=== PATIENT | male | born 1975 | race Caucasian/White ===

== ENCOUNTER 2017-12-22 20:06 | Inpatient (IN) | payer MEDICAID, OTHER ==
[2017-12-22] MEDS: KETOROLAC 30 MG INJ IV (23:35)
[2017-12-22] MEDS: ACETAMINOPHEN 325 MG TAB PO (23:35)
[2017-12-22] MEDS: ONDANSETRON 4 MG INJ IV (23:35)
[2017-12-22] MEDS: VANCOMYCIN 1 GM (PMX) 250 ML IVPB (23:35)
[2017-12-22 23:42] LABS: ADD MAN DIFF? NO
[2017-12-22] MEDS: SOD CHLORIDE 0.9% 1,000 ML IV (23:44)
[2017-12-22 23:47] LABS: WHITE BLOOD COUNT 14.7 10^3/ul (4.8-10.8)
[2017-12-22 23:47] LABS: BASOPHILS % 0.3 % (0.0-2.0); EOSINOPHILS # 0.1 10^3/ul (0.0-0.5); EOSINOPHILS % 0.4 % (0.0-7.0); HEMATOCRIT 36.6 % (42.0-52.0); HEMOGLOBIN 12.2 g/dl (14.0-18.0); MEAN CORPUSCULAR HEMOGLOBIN 29.8 pg (29.0-33.0); MEAN CORPUSCULAR HGB CONC 33.3 g/dl (32.0-37.0); MEAN CORPUSCULAR VOLUME 89.3 fl (82.0-101.0); MONOCYTE # 1.4 10^3/ul (0.3-0.9); MONOCYTES % 9.6 % (0.0-11.0); NEUTROPHILS % 81.5 % (39.0-77.0); PLATELET COUNT 198 10^3/UL (140-415); RED CELL DISTRIBUTION WIDTH 12.1 % (11.5-14.5)
[2017-12-23 00:05] LABS: ALANINE AMINOTRANSFERASE 42 IU/L (13-69); ALBUMIN 3.8 g/dl (3.3-4.9); ALBUMIN/GLOBULIN RATIO 0.82; ALKALINE PHOSPHATASE 141 IU/L (42-121); ANION GAP 19 (8-16); ASPARTATE AMINO TRANSFERASE 34 IU/L (15-46); BILIRUBIN,INDIRECT 0.2 mg/dl (0-1.1); BILIRUBIN,TOTAL 0.2 mg/dl (0.2-1.3); BLOOD UREA NITROGEN 32 mg/dl (7-20); CALCIUM 9.3 mg/dl (8.4-10.2); CARBON DIOXIDE 21 mmol/L (21-31); CHLORIDE 101 mmol/L (97-110); CREATININE 3.27 mg/dl (0.61-1.24); GLUCOSE 138 mg/dl (70-220); POTASSIUM 4.3 mmol/L (3.5-5.1); SODIUM 137 mmol/L (135-144); TOTAL PROTEIN 8.4 g/dl (6.1-8.1)
[2017-12-23 00:10] LABS: LACTIC ACID 2.2 mmol/L (0.5-2.0)
[2017-12-23 00:16] LABS: TROPONIN-I < 0.012 ng/ml (0.000-0.120)
[2017-12-23 00:21] LABS: INR 1.12; PROTIME 14.6 Sec (11.9-14.9); PT RATIO 1.1
[2017-12-23 00:22] LABS: PARTIAL THROMBOPLASTIN TIME 32.7 Sec (25.0-35.0)
[2017-12-23] MEDS: SOD CHLORIDE 0.9% 1,000 ML IV (01:15)
[2017-12-23] MEDS: CLINDAMYCIN 900 MG/D5W (PMX) 50 ML IVPB (01:37)
[2017-12-23 01:48] LABS: LACTIC ACID 0.6 mmol/L (0.5-2.0)
[2017-12-23] MEDS ORDERED: ONDANSETRON INJ 8 MG in DEXTROSE 5% 50 ML IV (05:30)
[2017-12-23] MEDS: DEXTROSE 5%-0.45% NACL 1,000 ML IV ×3 (05:41→22:26)
[2017-12-23 06:06] LABS: LACTIC ACID 0.9 mmol/L (0.5-2.0)
[2017-12-23] MEDS ORDERED: NACL 0.9% 3 ML SYG IV (07:00)
[2017-12-23] MEDS ORDERED: ALBUTEROL/IPRATROPIUM (NEB) 3 ML AMP HHN (07:00)
[2017-12-23] MEDS ORDERED: ONDANSETRON 4 MG INJ IV (07:00)
[2017-12-23] MEDS ORDERED: VANCOMYCIN IV PER PHARMACY XX (09:00)
[2017-12-23] MEDS: CEFEPIME 1GM/50 ML (PMX) 50 ML IVPB (09:25)
[2017-12-23] MEDS: HEPARIN 5,000 UNIT/0.5 ML VIAL SC ×2 (09:28→20:26)
[2017-12-23] MEDS: VANCOMYCIN 2 GM in SOD CHLORIDE 0.9% 500 ML IVPB (10:12)
[2017-12-23 11:56] LABS: HEMOGLOBIN A1C 5.1 % (0-5.9)
[2017-12-23 12:22] LABS: C-REACTIVE PROTEIN 20.2 mg/dl (0.0-0.9)
[2017-12-23 12:36] LABS: ADD UMIC YES; UR ASCORBIC ACID NEGATIVE (NEGATIVE); UR BACTERIA FEW /HPF (NONE SEEN); UR BILIRUBIN (Dip) NEGATIVE (NEGATIVE); UR BLOOD (Dip) 1+ mg/dL (NEGATIVE); UR CLARITY CLEAR (CLEAR); UR COLOR YELLOW (YELLOW); UR GLUCOSE (Dip) NEGATIVE (NEGATIVE); UR KETONES (Dip) NEGATIVE (NEGATIVE); UR LEUKOCYTE ESTERASE (Dip) NEGATIVE Leu/ul (NEGATIVE); UR NITRITE (Dip) NEGATIVE (NEGATIVE); UR RBC 1 /HPF (0-5); UR TOTAL PROTEIN (Dip) NEGATIVE (NEGATIVE); UR UROBILINOGEN (Dip) NEGATIVE (NEGATIVE); UR WBC 4 /HPF (0-5)
[2017-12-23 13:19] LABS: ADD UMIC YES; UR ASCORBIC ACID NEGATIVE (NEGATIVE); UR BILIRUBIN (Dip) NEGATIVE (NEGATIVE); UR BLOOD (Dip) 1+ mg/dL (NEGATIVE); UR CLARITY CLEAR (CLEAR); UR COLOR YELLOW (YELLOW); UR GLUCOSE (Dip) 1+ mg/dL (NEGATIVE); UR KETONES (Dip) NEGATIVE (NEGATIVE); UR LEUKOCYTE ESTERASE (Dip) NEGATIVE Leu/ul (NEGATIVE); UR NITRITE (Dip) NEGATIVE (NEGATIVE); UR RBC 0 /HPF (0-5); UR SPECIFIC GRAVITY (Dip) 1.011 (1.003-1.030); UR TOTAL PROTEIN (Dip) 1+ mg/dl (NEGATIVE); UR UROBILINOGEN (Dip) NEGATIVE (NEGATIVE); UR WBC 5 /HPF (0-5)
[2017-12-23 13:31] LABS: SODIUM,URINE RANDOM 45 mmol/L (30-90)
[2017-12-23 13:40] LABS: CREATININE,URINE RANDOM 93.47 mg/dl (20-370); PROTEIN/CREAT RATIO 0.71 RATIO
[2017-12-23 13:41] LABS: CREATININE,URINE RANDOM 95.24 mg/dl (20-370)
[2017-12-23 13:43] LABS: AMPHETAMINE/METHAMPHETAMINE Negative (NEGATIVE); BARBITURATES Negative (NEGATIVE); BENZODIAZEPINES Negative (NEGATIVE); CANNABINOIDS Negative (NEGATIVE); COCAINE Negative (NEGATIVE); OPIATES Negative (NEGATIVE)
[2017-12-23 14:04] LABS: ERYTHROCYTE SEDIMENTATION RATE 86 mm/Hr (0-15)
[2017-12-23] MEDS: ACETAMINOPHEN 325 MG TAB PO (20:24)
[2017-12-24 05:00] LABS: ADD MAN DIFF? NO
[2017-12-24 05:07] LABS: BASOPHILS % 0.4 % (0.0-2.0); EOSINOPHILS # 0.2 10^3/ul (0.0-0.5); HEMATOCRIT 33.8 % (42.0-52.0); HEMOGLOBIN 11.1 g/dl (14.0-18.0); LYMPHOCYTES % 10.1 % (15.0-51.0); MEAN CORPUSCULAR HEMOGLOBIN 29.6 pg (29.0-33.0); MEAN CORPUSCULAR HGB CONC 32.8 g/dl (32.0-37.0); MEAN CORPUSCULAR VOLUME 90.1 fl (82.0-101.0); MEAN PLATELET VOLUME 9.6 fl (7.4-10.4); MONOCYTES % 9.5 % (0.0-11.0); NEUTROPHIL # 7.7 10^3/ul (1.6-7.5); NEUTROPHILS % 76.7 % (39.0-77.0); PLATELET COUNT 202 10^3/UL (140-415); RED BLOOD COUNT 3.75 10^6/ul (4.70-6.10); RED CELL DISTRIBUTION WIDTH 12.5 % (11.5-14.5)
[2017-12-24 05:07] LABS: WHITE BLOOD COUNT 10.1 10^3/ul (4.8-10.8)
[2017-12-24 05:57] LABS: ALANINE AMINOTRANSFERASE 37 IU/L (13-69); ALBUMIN 3.4 g/dl (3.3-4.9); ALBUMIN/GLOBULIN RATIO 0.85; ALKALINE PHOSPHATASE 154 IU/L (42-121); ANION GAP 16 (8-16); ASPARTATE AMINO TRANSFERASE 36 IU/L (15-46); BILIRUBIN,INDIRECT 0.3 mg/dl (0-1.1); BILIRUBIN,TOTAL 0.3 mg/dl (0.2-1.3); BLOOD UREA NITROGEN 21 mg/dl (7-20); CALCIUM 8.6 mg/dl (8.4-10.2); CARBON DIOXIDE 25 mmol/L (21-31); CHLORIDE 107 mmol/L (97-110); CREATININE 1.76 mg/dl (0.61-1.24); GLUCOSE 126 mg/dl (70-220); MAGNESIUM 2.2 mg/dl (1.7-2.5); PHOSPHORUS 3.6 mg/dl (2.5-4.9); SODIUM 144 mmol/L (135-144); TOTAL PROTEIN 7.4 g/dl (6.1-8.1)
[2017-12-24] MEDS: DEXTROSE 5%-0.45% NACL 1,000 ML IV ×3 (06:24→23:17)
[2017-12-24] MEDS ORDERED: PROPOFOL 200 MG INJ (07:00)
[2017-12-24] MEDS: HEPARIN 5,000 UNIT/0.5 ML VIAL SC ×2 (08:23→20:50)
[2017-12-24] MEDS: CEFEPIME 1GM/50 ML (PMX) 50 ML IVPB (08:23)
[2017-12-24] MEDS: HYDROCODONE/APAP (5/325) TAB PO ×3 (08:30→23:24)
[2017-12-24] MEDS ORDERED: FENTAnyl 50 MCG/ML VIAL (16:48)
[2017-12-24] MEDS ORDERED: METOCLOPRAMIDE 10 MG INJ IV (17:00)
[2017-12-24] MEDS ORDERED: ALBUTEROL 0.083% (NEB) 2.5 MG/3 ML AMP HHN (17:00)
[2017-12-24] MEDS ORDERED: ONDANSETRON 4 MG INJ IV (17:00)
[2017-12-24] MEDS ORDERED: DIPHENHYDRAMINE 50 MG INJ IV (17:00)
[2017-12-24] MEDS ORDERED: HYDROmorphONE 1 MG/5 ML IV SYRINGE IV ×3 (17:00)
[2017-12-24] MEDS ORDERED: FENTAnyl 50 MCG/ML VIAL IV ×2 (17:00)
[2017-12-24] MEDS ORDERED: MEPERIDINE 25 MG INJ IV (17:00)
[2017-12-24] MEDS ORDERED: LIDOCAINE 1% (MPF) 30 ML INJ (17:15)
[2017-12-24] MEDS ORDERED: PROPOFOL 80 ML (17:37)
[2017-12-24] MEDS: LIDOCAINE 1% (MPF) 30 ML INJ (17:49)
[2017-12-24] MEDS: ACETAMINOPHEN 325 MG TAB PO (23:46)
[2017-12-25] MEDS: DEXTROSE 5%-0.45% NACL 1,000 ML IV ×2 (04:30→18:06)
[2017-12-25 05:08] LABS: ADD MAN DIFF? NO
[2017-12-25 05:22] LABS: BASOPHIL # 0.1 10^3/ul (0.0-0.1); BASOPHILS % 0.6 % (0.0-2.0); EOSINOPHILS # 0.3 10^3/ul (0.0-0.5); EOSINOPHILS % 3.2 % (0.0-7.0); HEMATOCRIT 29.3 % (42.0-52.0); HEMOGLOBIN 9.7 g/dl (14.0-18.0); LYMPHOCYTES # 1.3 10^3/ul (0.8-2.9); LYMPHOCYTES % 14.3 % (15.0-51.0); MEAN CORPUSCULAR HEMOGLOBIN 29.5 pg (29.0-33.0); MEAN CORPUSCULAR HGB CONC 33.1 g/dl (32.0-37.0); MEAN CORPUSCULAR VOLUME 89.1 fl (82.0-101.0); MEAN PLATELET VOLUME 9.6 fl (7.4-10.4); MONOCYTE # 0.8 10^3/ul (0.3-0.9); MONOCYTES % 8.8 % (0.0-11.0); NEUTROPHIL # 6.5 10^3/ul (1.6-7.5); NEUTROPHILS % 71.4 % (39.0-77.0); PLATELET COUNT 234 10^3/UL (140-415); RED BLOOD COUNT 3.29 10^6/ul (4.70-6.10); RED CELL DISTRIBUTION WIDTH 12.4 % (11.5-14.5)
[2017-12-25 05:22] LABS: WHITE BLOOD COUNT 9.1 10^3/ul (4.8-10.8)
[2017-12-25 05:42] LABS: VANCOMYCIN,RANDOM < 5.0 ug/ml
[2017-12-25 05:52] LABS: ANION GAP 15 (8-16); CARBON DIOXIDE 24 mmol/L (21-31); CHLORIDE 107 mmol/L (97-110); POTASSIUM 3.8 mmol/L (3.5-5.1); SODIUM 142 mmol/L (135-144)
[2017-12-25 05:54] LABS: BLOOD UREA NITROGEN 15 mg/dl (7-20); CALCIUM 8.3 mg/dl (8.4-10.2); CREATININE 1.33 mg/dl (0.61-1.24); GLUCOSE 114 mg/dl (70-220)
[2017-12-25 06:46] LABS: PROTEIN, TOTAL 6.8 g/dL (6.1-8.1)
[2017-12-25] MEDS: HEPARIN 5,000 UNIT/0.5 ML VIAL SC ×2 (08:54→20:48)
[2017-12-25] MEDS: CEFEPIME 2GM/50 ML IVPB (09:46)
[2017-12-25] MEDS: VANCOMYCIN 2 GM in SOD CHLORIDE 0.9% 500 ML IVPB (11:16)
[2017-12-25 15:23] LABS: C-REACTIVE PROTEIN 12.6 mg/dl (0.0-0.9)
[2017-12-25 15:46] LABS: ABNORMAL PROTEIN BAND 1 0.1 g/dL (NONE DETECTED); ALBUMIN 2.9 g/dL (3.8-4.8); ALPHA-1-GLOBULINS 0.7 g/dL (0.2-0.3); ALPHA-2-GLOBULINS 0.9 g/dL (0.5-0.9); BETA 2 GLOBULINS 0.7 g/dL (0.2-0.5); BETA GLOBULINS 0.5 g/dL (0.4-0.6); GAMMA GLOBULINS 1.3 g/dL (0.8-1.7)
[2017-12-25] MEDS: CEFTRIAXONE 2 GM/50 ML (PMX) 50 ML IVPB (16:34)
[2017-12-25] MEDS: morphine 2 MG INJ IV (21:49)
[2017-12-25] MEDS ORDERED: VANCOMYCIN 1.5 GM in SOD CHLORIDE 0.9% 250 ML IVPB (22:00)
[2017-12-26] MEDS: DEXTROSE 5%-0.45% NACL 1,000 ML IV ×2 (05:04→16:43)
[2017-12-26] MEDS: HEPARIN 5,000 UNIT/0.5 ML VIAL SC ×2 (08:20→21:03)
[2017-12-26 14:07] LABS: PROCALCITONIN 0.57 ng/mL (<0.10)
[2017-12-26] MEDS: CEFTRIAXONE 2 GM/50 ML (PMX) 50 ML IVPB (16:29)
[2017-12-27] MEDS: DEXTROSE 5%-0.45% NACL 1,000 ML IV (06:40)
[2017-12-27] MEDS: SODIUM HYPOCHLORITE (1/40) 1 APPLIC BTL IRR (09:00)
[2017-12-27] MEDS: HEPARIN 5,000 UNIT/0.5 ML VIAL SC (09:46)
[2017-12-29 18:06] LABS: PTH CALCIUM 8.2 mg/dL (8.6-10.3)
[2017-12-30 09:26] LABS: PTH INTACT 66 pg/mL (14-64)
[2017-12-30 13:17] LABS: PROCALCITONIN 0.15 ng/mL (<0.10)
== END 2017-12-27 16:38 | disposition home or self-care (01) | DRG 872 ==
LOC: FTE 20:06 → MS1 12-23 02:17
PROC: 0Y9H0ZZ Drainage of Right Lower Leg, Open Approach (ICD-10-PCS; principal; 2017-12-24 16:48)
DX: A41.9 Sepsis, unspecified organism (principal); L03.116 Cellulitis of left lower limb; L97.329 Non-pressure chronic ulcer of left ankle with unspecified severity; N17.9 Acute kidney failure, unspecified; L02.415 Cutaneous abscess of right lower limb; Z68.41 Body mass index [BMI] 40.0-44.9, adult; I83.023 Varicose veins of left lower extremity with ulcer of ankle; E66.01 Morbid (severe) obesity due to excess calories; A49.01 Methicillin susceptible Staphylococcus aureus infection, unspecified site
CPT/HCPCS: 36415; 73610-RT; 73721; 76775; 80048; 80053; 80202; 80307; 81001; 81003; 82570; 83036; 83605; 83735; 83970; 84100; 84145; 84155; 84165; 84300; 84484; 85025; 85610; 85651; 85730; 86140; 87040; 87070; 87075; 87102; 93922; 93971; 96374; 96375; 99285-25